=== PATIENT | female | born 1985 | race Caucasian/White ===

== ENCOUNTER → 2017-01-03 | Outpatient (CLI) | payer BC | END | disposition home or self-care (01) | LOC: C.PAPS 09:56 | PROVIDERS: ATTEND Obstetrics & Gynecology | DX: Z01.419 Encounter for gynecological examination (general) (routine) without abnormal findings (principal) ==

== ENCOUNTER → 2017-06-21 | Outpatient (CLI) | payer BC ==
--- NOTE | 2017-06-21 10:45 | DIAGNOSTIC IMAGING REPORT ---
RIGHT FOURTH FINGER 3 VIEWS CLINICAL HISTORY: Bone neoplasm. FINDINGS: 3 views of the right fourth finger are obtained. No prior studies are available for comparison at the time of dictation. The skeletal structures are well mineralized. There is a benign-appearing lucent expansile lesion identified within the proximal shaft of the fourth proximal phalanx. This demonstrates a narrow zone of transition and is most typical in appearance for an enchondroma or less likely an aneurysmal bone cyst. A nondistracted pathologic fracture is identified, best seen on the oblique view. The fourth metacarpophalangeal and interphalangeal joints are well-maintained. The overlying soft tissues are within normal limits. IMPRESSION: 1. There is a benign-appearing lucent lesion in the proximal shaft of the fourth proximal phalanx most typical appearance for an enchondroma or less likely an aneurysmal bone cyst. Orthopedic follow-up is advised. 2. There is evidence of nondisplaced pathologic fracture through this lesion. Electronically signed by: Keaton Noel M.D. 06/21/2017 10:44 AM Dictated Date/Time: 06/21/2017 10:40 AM
== END | disposition home or self-care (01) ==
LOC: C.RAD1850 10:08
PROVIDERS: ATTEND Nurse Practitioner Adult Health
DX: D16.11 Benign neoplasm of short bones of right upper limb (principal)

== ENCOUNTER → 2018-07-09 | Outpatient (CLI) | payer OTHER | END | disposition home or self-care (01) | LOC: C.LAB1850 09:44 | PROVIDERS: ATTEND Obstetrics & Gynecology | DX: Z34.02 Encounter for supervision of normal first pregnancy, second trimester (principal); Z3A.00 Weeks of gestation of pregnancy not specified ==

== ENCOUNTER 2022-10-15 21:38 | Observation (INO) ==
[2022-10-15] MEDS ORDERED: ONDANSETRON INJ 2 MG/ML 2 ML VIAL IV STA (22:00)
[2022-10-15] MEDS ORDERED: SODIUM CHLORIDE 0.9% 1000ML 1,000 ML IV ONE (22:00)
--- NOTE | 2022-10-15 22:06 | Emergency Department Note ---
Impression & Plan Nausea, vomiting and diarrhea, Acute dehydration, 36 weeks gestation of ED Provider Note Name: JESSICA SOL Age: 37 Sex: F Arrives Via: Walk-In Informant: Patient, ED Provider: Balaji Hines MD Chief Complaint: Vomiting Impression: As per impressions above Medical Decision Making: Healthy 37-year-old female at 36 weeks with second arrives for evaluation nausea vomiting diarrhea with likely culprit being at officiate last night. On examination she is dehydrated but otherwise looks well. She has a soft nontender abdomen with gravid uterus. She is not septic appearing and otherwise appears well. She does note some periodic contractions but they are intermittent and consistent with Antonio Rodríguez she has not had any vaginal discharge or bleeding. She was sent to ER by OB team for evaluation hydration. Following this I discussed case with on-call OB who asked that she be sent for NST upstairs. She left with IV in place to give further fluids which I think is reasonable. She was sent with Zofran ODT as needed. Differentials:Gastroenteritis, food borne illness, infections, appendicitis, diverticulitis, inflammatory bowel disease, obstruction, biliary pathology, volvulus, as well as other pathologies. Vital Signs: reviewed and remarkable for mild tachycardia on arrival Interventions: Zofran 4 mg IV, 1 L IV normal saline bolus x2 Labs:Reviewed and remarkable for no significant abnormalities Patient without urine output while here but is setting up to OB given the periodic contractions will defer to them for obtaining this if needed Plan: Disposition: Discharged from ER up to L&D Condition: Good History of Present Illness:87-year-old female arrives for evaluation of dehydration. Patient with 12 hours of nausea vomiting and diarrhea. Initially started with vomiting this morning and progressed to diarrhea throughout the afternoon. She notes she is feeling bit lightheaded worse with standing. Associated with dry mouth and decreased urination. Patient is currently 36 weeks with her second . No previous issues with the other than some swelling in her ankles. She notes the swelling in her ankles has gotten better today after she been quite dehydrated. Unable to keep down any food or drink by mouth as she vomits it back up. No fevers, chills, chest pain, shortness of breath, syncope, headache, neck pain, abdominal pain, back pain, urinary burning/frequency, blood in stool, calf pain or other concerning signs or symptoms. No medications prior to arrival. Eating makes worse rest makes better. No known sick contacts. She did have fish last night which she is worried may have been the culprit in this incident. ROS: See above HPI for pertinent positives & negatives. A total of 10 systems reviewed and were otherwise negative. Past Medical History:Anxiety Past Surgical History:See Below Family History:See Below Social History:See Below Home Medications:See Below Allergies:Crys Vitals:Blood Pressure: 116/73, Pulse 120, RR 16, T 36.1C, O2 97% on RA Physical Exam: GENERAL: Patient is tired/dehydrated appearing and in mild distress. EYES: No scleral icterus, unremarkable pupils. ENT: Mucous membranes moist, no nasal congestion. NECK: No masses appreciated, nomeningismus, trachea is midline. RESPIRATORY: No dyspnea. Clear to auscultation and equal bilaterally. No wheeze, no rhonchi. CARDIOVASCULAR: Regular rate and rhythm.No murmurs, rubs, gallops appreciated. GASTROINTESTINAL: Gravid uterus. Abdomen soft, non-tender, no peritonitis.Bowel sounds positive. BACK: No midline tenderness, no CVA tenderness EXTREMITIES: Normal motion all extremities, no cyanosis, no edema. NEUROLOGIC: Alert and oriented, no acute motor or sensory deficits, no focal weakness, cranial nerves grossly intact. SKIN: No rash, no jaundice, no diaphoresis. PSYCH: Appropriate GCS: 15 ED Course: Times/Reassessments: Patient notes she feels much better heart rate has improved she is actually asking if discharged but after discussion with OB will send to L&D for NST she is on board with that plan. Balaji Hines MD Past Med/Surg History Medical History (Updated 10/16/22 @ 00:09 by Balaji Hines MD) 41 weeks gestation of Anxiety as acute reaction to exceptional stress Asthma Chest pain History of chicken pox Inguinal hernia Oral contraceptive prescribed PROM (premature rupture of membranes) PTSD (post-traumatic stress disorder) Streptococcal sore throat Vaginal delivery Surgical History History of bone graft 4th finger right hand S/P hernia repair [place] teeth extracted Family History Father Alcohol abuse Hypertension Melanoma Dyslipidemia Mother Hypertension Dyslipidemia Grandfather Prostate cancer Denies family history of Ovarian cancer Myocardial infarction Breast cancer Colorectal cancer Social History (Updated 03/27/22 @ 10:56 by Ashly Daniel) Smoking Status: Never smoker Second Hand Exposure: No; Hx Alcohol Use: No Hx Substance Use: No Preferred Language: B[place] Communication Ability: Effective Visual Impairment: No Limitations Hearing Ability: Normal Distribution Lead Required: No Beliefs That Will Affect Care: None marital status: marital status details: Quinton Sol (40) [phone] Current Living Situation: Spouse and Family Current Living Situation Comment: lives with spouse, son, cats-spouse changing litter current occupational status: employed 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 Feels Safe at Home: Yes Physical Activity Frequency: 3-4 Times per Week Seatbelt Use: always Assistive Devices: None Allergies Allergies Allergy/AdvReac Type Severity Reaction Status Date / Time cat dander Allergy Severe CAN Verified 10/16/22 07:49 TRIGGER ASTHMA ATTACK dog dander Allergy Severe CAN Verified 10/16/22 07:49 TRIGGER ASTHMA ATTACK crys Allergy Intermediate Hives Verified 10/16/22 07:49 CUT GRASS Allergy Severe CAN Uncoded 10/16/22 07:49 TRIGGER ASTHMA ATTACK Home Meds Home Medications Medication Instructions Recorded Confirmed cetirizine 10 mg tablet (Zyrtec) 10 mg PO DAILY 12/31/18 10/16/22 fluticasone propionate 50 1 spray intranasal DAILY 02/07/20 10/16/22 mcg/actuation nasal spray,suspension (Flonase Allergy Relief) prenat.vits,jaymie,[id number] 1 tab PO DAILY 03/27/22 10/16/22 Previous Rx's Medication Instructions Recorded albuterol sulfate 90 mcg/actuation 1 - 2 puffs inhalation Q4H PRN 02/11/20 aerosol inhaler shortness of breath or wheezing #8 grams montelukast 10 mg tablet 10 mg PO DAILY #90 tabs 11/06/21 (Singulair) ferrous sulfate 325 mg (65 mg 325 mg PO DAILY #30 tabs 09/04/22 iron) tablet Results & Data (ED) Vital Signs Vital Signs - 24 hr 10/15/22 21:40 10/15/22 21:38 10/15/22 23:00 Temperature 36.1 C L Temperature Source Temporal Artery Scan Pulse Rate 120 H Pulse Rate [Finger] 101 H 109 H Pulse Rhythm [Finger] Regular Pulse Strength [Finger] Normal Respiratory Rate 16 22 20 Respiratory Effort / Characteristics Non-Labored Spontaneous Non-Labored Non-Labored Spontaneous Respiratory Depth Normal Normal Normal Respiratory Pattern Regular Blood Pressure 116/73 Blood Pressure [Right Arm] 111/67 111/67 Blood Pressure Mean 87 Blood Pressure Mean [Right Arm] 81 81 Pulse Oximetry 97 99 98 Oxygen Delivery Method Room Air Room Air Room Air Sepsis Recent Fever Within 48 Hours No Sepsis New/Unexplained Change in Mental Status N/A Sepsis Action Taken by Nursing No Action Required 10/15/22 23:30 10/16/22 00:15 Temperature Temperature Source Pulse Rate Pulse Rate [Finger] 100 H 109 H Pulse Rhythm [Finger] Pulse Strength [Finger] Respiratory Rate 18 18 Respiratory Effort / Characteristics Non-Labored Spontaneous Non-Labored Spontaneous Respiratory Depth Normal Normal Respiratory Pattern Blood Pressure Blood Pressure [Right Arm] 105/69 118/61 Blood Pressure Mean Blood Pressure Mean [Right Arm] 81 80 Pulse Oximetry 98 97 Oxygen Delivery Method Room Air Room Air Sepsis Recent Fever Within 48 Hours Sepsis New/Unexplained Change in Mental Status Sepsis Action Taken by Nursing Laboratory Data Result diagrams: 10/15/22 22:48 10/15/22 22:48 Lab Results 10/15/22 10/15/22 Range/Units 22:48 22:48 WBC 7.07 (4.8-10.8) K/ul RBC 4.22 (3.93-5.22) M/uL Hgb 12.2 (12.0-16.0) g/dl Hct 37.1 (34.1-44.9) % MCV 87.9 (80.0-100.0) fL MCH 28.9 (25.0-34.0) pg MCHC 32.9 (32.0-36.0) g/dL RDW Std Deviation 49.7 H (36.4-46.3) fL RDW Coeff of Robbie 15.7 H (11.5-14.5) % Plt Count 205 (130-400) K/uL MPV 9.9 (9.4-12.3) fL Immature Gran % (Auto) 0.7 % Neut % (Auto) 89.7 % Lymph % (Auto) 5.7 % [place]bour % (Auto) 3.5 % Eos % (Auto) 0.1 % Baso % (Auto) 0.3 % Neut # (Auto) 6.34 (1.4-6.5) K/uL Lymph # (Auto) 0.40 L (1.2-3.4) K/uL [place]bour # (Auto) 0.25 (0.24-0.82) K/uL Eos # (Auto) 0.01 (0-0.50) K/uL Baso # (Auto) 0.02 (0-0.2) K/uL Immature Gran # (Auto) 0.05 H (0.00-0.02) K/uL Sodium 134 L (136-145) mmol/L Potassium 3.8 (3.5-5.1) mmol/L Chloride 103 (98-107) mmol/L Carbon Dioxide 21 (21-32) mmol/L Anion Gap 10 (3-11) BUN 8 (6-23) mg/dl Creatinine 0.51 L (0.6-1.2) mg/dl Est Cr Clr Drug Dosing 155.0 ml/min Est GFR ( Amer) 144.4 ml/min Est GFR (Non-Af Amer) 124.6 ml/min BUN/Creatinine Ratio 15.7 (10-20) Glucose 102 H (70-99(Fasting)) mg/dl Calcium 8.1 L (8.5-10.1) mg/dl Total Bilirubin 0.5 (0.2-1.0) mg/dl Direct Bilirubin 0.1 (0-0.2) mg/dl AST 15 (13-39) U/L ALT 11 (7-52) U/L Alkaline Phosphatase 123 H (34-104) U/L Total Protein 6.7 (6.0-8.3) gm/dl Albumin 3.4 (3.4-5.0) gm/dl Administered Medications Discontinued Medications Sodium Chloride (Nss 1000ml) 1,000 mls @ 999 mls/hr IV .Q1H1M ONE Stop: 10/15/22 23:00 Last Infusion: 10/16/22 00:06 Dose: 0 mls/hr Documented By: Admin: 10/15/22 22:55 Dose: 999 mls/hr Documented By: JAN Sodium Chloride (Nss 1000ml) 1,000 mls @ 999 mls/hr IV .Q1H1M ONE Stop: 10/16/22 01:08 Last Admin: 10/16/22 00:15 Dose: 999 mls/hr Documented By: JANINE Ondansetron HCl (Ondansetron Inj 2 Mg/Ml 2 Ml Vial) 4 mg IV NOW STA Stop: 10/15/22 22:01 Last Admin: 10/15/22 22:56 Dose: 4 mg Documented By: JAN Ondansetron HCl (Ondansetron Home Pack 4mg Od Tab) 1 each PO NOW ONE Stop: 10/16/22 00:09 Last Admin: 10/16/22 00:15 Dose: 1 each Documented By: JANINE Discharge Plan Visit Data Chief Complaint: Vomiting Stated Complaint: VOMITING, 36 WKS PREG ED Provider: Balaji Hines Discharge Problem: Nausea, vomiting and diarrhea, Acute dehydration, 36 weeks gestation of Patient Disposition: Admitted As Inpatient Condition: Good Discharge Instructions Interventions: ED Discharge Assessment Last Done: 10/16/22 00:22
[2022-10-15 22:57] LABS: Basophils # (auto) 0.02 K/uL (0-0.2); Basophils % (auto) 0.3 %; Eosinophils # (auto) 0.01 K/uL (0-0.50); Eosinophils % (auto) 0.1 %; Hematocrit (blood only) 37.1 % (34.1-44.9); Hemoglobin 12.2 g/dl (12.0-16.0); Immature Granulocytes # (auto) 0.05 K/uL (0.00-0.02); Immature Granulocytes % (auto) 0.7 %; Lymphocytes % (auto) 5.7 %; Mean Corpuscular Hemoglobin 28.9 pg (25.0-34.0); Mean Corpuscular Hgb Conc 32.9 g/dL (32.0-36.0); Mean Corpuscular Volume 87.9 fL (80.0-100.0); Mean Platelet Volume 9.9 fL (9.4-12.3); Monocytes # (auto) 0.25 K/uL (0.24-0.82); Monocytes % (auto) 3.5 %; Neutrophils # (auto) 6.34 K/uL (1.4-6.5); Neutrophils % (auto) 89.7 %; Platelet Count 205 K/uL (130-400); RDW Coefficient of Variation 15.7 % (11.5-14.5); RDW Standard Deviation 49.7 fL (36.4-46.3); Red Blood Count 4.22 M/uL (3.93-5.22); White Blood Count 7.07 K/ul (4.8-10.8)
[2022-10-15 23:29] LABS: Albumin Level 3.4 gm/dl (3.4-5.0); BUN Creatinine Ratio 15.7 (10-20); Bilirubin Direct 0.1 mg/dl (0-0.2); Bilirubin,Total 0.5 mg/dl (0.2-1.0); Calcium 8.1 mg/dl (8.5-10.1); Est GFR (African American) 144.4 ml/min; Est GFR (Non-African American) 124.6 ml/min; Potassium 3.8 mmol/L (3.5-5.1); Total Protein 6.7 gm/dl (6.0-8.3)
[2022-10-16] MEDS ORDERED: ONDANSETRON HOME PACK 4MG OD TAB PO ONE (00:08)
[2022-10-16] MEDS ORDERED: SODIUM CHLORIDE 0.9% 1000ML 1,000 ML IV ONE (00:08)
--- NOTE | 2022-12-09 01:39 | Discharge Summary (DS) ---
PRINCIPAL DIAGNOSES: Intrauterine at 36 weeks, prior section, nausea, vomiting, diarrhea and dehydration. HOSPITAL COURSE: The patient is a 37-year-old multiparous female who presents to the emergency room following which she feels maybe food poisoningshe and her had gone to a restaurant for dinner and had fish. Approximately 12 hours later, she was experiencing nausea, vomiting and then diarrhea, which was ongoing for the last 12 hours. She had no fever or chills, but because of concerns for dehydration, she came to the emergency room and received IV fluids as well as antiemetics. She was then feeling better at that time and was sent to labor and delivery for a nonstress test to assure that she was not brice excessive. . The nonstress test was reactive, and she was only having sporadic contractions. She was discharged to home to follow a modified clear liquid diet until her nausea had resolved. She is to call for any increase in contractions, vaginal bleeding, leaking fluid vaginally, fever, chills, temperature of 101 degrees or higher, increasing nausea, vomiting or diarrhea. She is to follow up for her next visit in the office as scheduled. [facility] ID[facility] [id number] [facility]
== END 2022-10-16 01:20 | disposition home or self-care (01) ==
LOC: 4S1 21:38 → ED 21:38 → 4S1 10-16 00:22

== ENCOUNTER 2022-11-06 05:28 | Inpatient (IN) ==
--- NOTE | 2022-10-30 14:56 | Anesthesiology Consultation ---
Date of Service October 30, 2022 Assessment & Plan (1) Encounter for pre-operative examination: Chart Review Chart Review: entry level account executive initiated - Pt with history of prior 4th degree tear at delivery with forceps. Scheduled for elective primary -COVID screening: Per PAT nursing assessment on 10/30/22. No known COVID-19 positive contacts or current COVID-19 related symptoms. Travel screen negative. Patient vaccinated for Covid. At surgeon discretion if preop Covid testing being done. CSE 12/31/18= Done at L3-4 with one attempt History Surgery Operation Date: 11/06/22 07:30 Proposed Procedures p SECTION (DELIVERY OF BABY THROUGH ABDOMINAL INCISION) - Osiris Kruger MD Height/Weight Height: 5 ft 1 in Weight: 88.904 kg Allergies Allergy/AdvReac Type Severity Reaction Status Date / Time cat dander Allergy Severe CAN Verified 10/30/22 14:29 TRIGGER ASTHMA ATTACK dog dander Allergy Severe CAN Verified 10/30/22 14:29 TRIGGER ASTHMA ATTACK hoang Allergy Intermediate Hives Verified 10/30/22 14:29 CUT GRASS Allergy Severe CAN Uncoded 10/30/22 14:29 TRIGGER ASTHMA ATTACK Medications Home Medications Medication Instructions Recorded Confirmed Last Taken cetirizine 10 mg tablet (Zyrtec) 10 mg PO QAM 12/31/18 10/30/22 10/15/22 fluticasone propionate 50 1 spray intranasal QAM 02/07/20 10/30/22 10/15/22 mcg/actuation nasal spray,suspension (Flonase Allergy Relief) albuterol sulfate 90 mcg/actuation 1 - 2 puffs inhalation Q4H PRN 02/11/20 10/30/22 Unknown aerosol inhaler shortness of breath or wheezing #8 grams prenat.vits,jaymie,zfz-tenh-aimri 1 tab PO DAILY 03/27/22 10/30/22 10/15/22 ferrous sulfate 325 mg (65 mg 325 mg PO 3XWK 10/30/22 10/30/22 Unknown iron) tablet montelukast 10 mg tablet 10 mg PO QAM 10/30/22 10/30/22 Unknown (Singulair) Past Medical History Medical History Asthma USES INHALER IN COLD MONTHS History of chicken pox PTSD (post-traumatic stress disorder) post delivery with emotional trauma due to baby being delivered with forceps in December of 2018 Past Family History Family History Father Alcohol abuse Dyslipidemia Melanoma Hypertension Mother Dyslipidemia Hypertension Grandfather Prostate cancer Other No family history of adverse response to anesthesia Denies family history of Ovarian cancer Myocardial infarction Breast cancer Colorectal cancer Past Surgical History Surgical History H/O inguinal hernia repair History of bone graft 4th finger right hand History of colonoscopy [place] teeth extracted Social History Smoking Status: Never smoker Hx Alcohol Use: No Hx Substance Use: No substance use type: does not use Lab Results Anesthesia Preop Results Results Anesthesia Widget: WBC 7.07 K/ul (4.8-10.8) 10/15/22 Hgb 12.2 g/dl (12.0-16.0) 10/15/22 Hct 37.1 % (34.1-44.9) 10/15/22 Plt 205 K/uL (130-400) 10/15/22 Na 134 mmol/L (136-145) L 10/15/22 K 3.8 mmol/L (3.5-5.1) 10/15/22 Cl 103 mmol/L (98-107) 10/15/22 CO2 21 mmol/L (21-32) 10/15/22 BUN 8 mg/dl (6-23) 10/15/22 Creat 0.51 mg/dl (0.6-1.2) L 10/15/22 Glucose Level 102 mg/dl (70-99(Fasting)) H 10/15/22
[2022-11-06 05:55] LABS: Basophils # (auto) 0.08 K/uL (0-0.2); Eosinophils % (auto) 4.9 %; Hematocrit (blood only) 35.2 % (34.1-44.9); Hemoglobin 11.5 g/dl (12.0-16.0); Immature Granulocytes # (auto) 0.05 K/uL (0.00-0.02); Immature Granulocytes % (auto) 0.6 %; Lymphocytes # (auto) 2.16 K/uL (1.2-3.4); Lymphocytes % (auto) 26.2 %; Mean Corpuscular Hemoglobin 28.2 pg (25.0-34.0); Mean Corpuscular Hgb Conc 32.7 g/dL (32.0-36.0); Mean Corpuscular Volume 86.3 fL (80.0-100.0); Mean Platelet Volume 10.2 fL (9.4-12.3); Monocytes # (auto) 0.53 K/uL (0.24-0.82); Monocytes % (auto) 6.4 %; Neutrophils # (auto) 5.01 K/uL (1.4-6.5); Neutrophils % (auto) 60.9 %; Platelet Count 200 K/uL (130-400); RDW Coefficient of Variation 15.9 % (11.5-14.5); RDW Standard Deviation 49.5 fL (36.4-46.3); Red Blood Count 4.08 M/uL (3.93-5.22); White Blood Count 8.23 K/ul (4.8-10.8)
[2022-11-06] MEDS ORDERED: LACTATED RINGER'S 1,000 ML IV SCH ×2 (06:00→09:15)
[2022-11-06] MEDS ORDERED: CITRIC ACID/SODIUM CITRATE 15 ML UDC PO SCH (06:00)
[2022-11-06] MEDS ORDERED: ceFAZolin 2,000 MG in SYRINGE 0 ML IV SCH (06:00)
[2022-11-06] MEDS ORDERED: ePHEDrine sulfate 50 MG/ML AMP IV PRN (07:14)
[2022-11-06] MEDS ORDERED: MoRPHine SULFATE PF 1 MG/ML 10 ML AMP/VIAL INT SPINAL ONE (07:14)
[2022-11-06] MEDS ORDERED: ONDANSETRON INJ 2 MG/ML 2 ML VIAL IV PRN (07:14)
[2022-11-06] MEDS ORDERED: NALOXONE HCL 0.4 MG/1 ML VIAL/CARP IV PRN (07:14)
[2022-11-06] MEDS ORDERED: PROMETHAZINE HCL 6.25 MG in SODIUM CHLORIDE 0.9% 50 ML IV PRN (07:14)
[2022-11-06] MEDS ORDERED: NALOXONE HCL 1 MG in SODIUM CHLORIDE 0.9% 1000ML 1,000 ML IV PRN (07:14)
[2022-11-06] MEDS ORDERED: NALOXONE HCL 0.08 MG in SYRINGE 1.8 ML IV PRN (07:14)
[2022-11-06] MEDS ORDERED: NALBUPHINE HCL INJ 10 MG/ML AMP IV PRN (07:14)
[2022-11-06] MEDS ORDERED: LACTATED RINGER'S 500 ML IV PRN (07:14)
[2022-11-06] MEDS ORDERED: diphenhydrAMINE 50 MG/ML VIAL IV PRN (07:14)
[2022-11-06] MEDS ORDERED: NO NARCOTICS OR SEDATIVES SCH (07:15)
[2022-11-06] MEDS ORDERED: DC INTRASPINAL MORPHINE SCH (07:15)
[2022-11-06] MEDS ORDERED: SODIUM CHLORIDE 0.9% 1000ML 1,000 ML IV SCH (07:15)
[2022-11-06] MEDS ORDERED: MoRPHine SULFATE PF 1 MG/ML 10 ML AMP/VIAL ONE (07:27)
--- NOTE | 2022-11-06 07:32 | History & Physical Bridge Note ---
Date of Service November 06, 2022 History & Physical Bridge Note I have examined the patient, reviewed the History & Physical and in the interval since the performance of the History & Physical I have noted the following changes of clinical significance: no changes noted
[2022-11-06] MEDS ORDERED: KETOROLAC 30 MG/ML VIAL IV PRN (08:17)
[2022-11-06] MEDS ORDERED: MEPERIDINE HCL 50 MG/ML CARP IV PRN (08:17)
[2022-11-06] MEDS ORDERED: SENNA 8.6 MG TAB PO PRN (08:17)
[2022-11-06] MEDS ORDERED: BENZOCAINE 20% AER SPR 82.5 GM CAN EXT PRN (08:17)
[2022-11-06] MEDS ORDERED: HYDROCORTISONE ACETATE 25 MG SUPP PR PRN (08:17)
[2022-11-06] MEDS ORDERED: MAGNESIUM HYDROXIDE SUSP 30 ML UDC PO PRN (08:17)
[2022-11-06] MEDS ORDERED: DIPHTHERIA/TETANUS/PERTUSSIS 0.5 ML SYR/VIAL IM ONE (08:30)
[2022-11-06] MEDS ORDERED: OXYTOCIN 20 UNITS in LACTATED RINGER'S 1,000 ML IV SCH (08:30)
[2022-11-06] MEDS ORDERED: ONDANSETRON INJ 2 MG/ML 2 ML VIAL ONE (08:34)
[2022-11-06] MEDS ORDERED: PHENYLEPHRINE 100MCG/ML 5ML SYR ONE (08:34)
[2022-11-06] MEDS ORDERED: KETOROLAC 30 MG/ML VIAL ONE (08:34)
[2022-11-06] MEDS ORDERED: OXYTOCIN 10 UNITS/ML 10ML VIAL ONE (08:34)
--- NOTE | 2022-11-06 11:39 | Anesthesiology Progress Note ---
Date of Service November 06, 2022 Anesthesia Post Procedure Vital Signs Vital Signs: Temp Pulse Resp BP Pulse Ox 11/06/22 09:35 20 11/06/22 09:35 20 11/06/22 09:25 20 11/06/22 09:15 20 11/06/22 09:05 20 11/06/22 08:55 20 11/06/22 08:45 20 11/06/22 08:35 36.4 C L 20 11/06/22 10:42 70 98 11/06/22 10:40 75 94/60 L 11/06/22 10:37 74 97 11/06/22 10:32 71 97 11/06/22 10:27 75 97 11/06/22 10:22 66 97 11/06/22 10:17 74 97 11/06/22 10:13 75 94 11/06/22 10:12 67 96 11/06/22 10:10 75 95/57 L 11/06/22 10:07 71 96 11/06/22 10:02 68 97 11/06/22 09:57 73 97 11/06/22 09:52 69 96 11/06/22 09:47 72 98 11/06/22 09:42 67 98 11/06/22 09:38 78 107/63 11/06/22 09:37 74 97 11/06/22 09:32 77 97 11/06/22 09:28 70 107/62 11/06/22 09:27 75 96 11/06/22 09:22 78 97 11/06/22 09:17 76 98 11/06/22 09:18 70 103/63 11/06/22 09:12 70 98 11/06/22 09:08 71 98/55 L 11/06/22 09:07 74 98 11/06/22 09:02 76 98 11/06/22 08:58 76 96/61 L 11/06/22 08:57 67 99 11/06/22 08:52 69 100 11/06/22 08:49 75 96/68 L 11/06/22 08:47 79 100 11/06/22 08:42 81 100 11/06/22 08:39 80 115/65 11/06/22 08:37 82 99 11/06/22 05:53 77 115/65 11/06/22 05:55 37.1 C 18 Transfer of Care Handoff Completed per policy Notes Mental Status: alert / awake / arousable Nausea / Vomiting: adequately controlled Pain: adequately controlled Airway Patency, RR, SpO2: stable & adequate BP & HR: stable & adequate Hydration State: stable & adequate Neuraxial Anesthesia: was administered and sensory block is resolving Anesthetic Complications: no major complications apparent and Pt Satisfied with anesthetic care
[2022-11-06] MEDS: SIMETHICONE 80 MG CHEW PO SCH ×3 (13:17→20:04)
[2022-11-06] MEDS: DOCUSATE SODIUM 100 MG CAP PO SCH (20:04)
[2022-11-06] MEDS ORDERED: KETOROLAC 30 MG/ML VIAL IV ONE (23:53)
[2022-11-07] MEDS ORDERED: PROMETHAZINE HCL 25 MG in SODIUM CHLORIDE 0.9% 50 ML IV PRN (01:15)
[2022-11-07] MEDS ORDERED: diphenhydrAMINE Capsule 25 MG CAP PO PRN (01:15)
[2022-11-07] MEDS ORDERED: MEPERIDINE HCL 50 MG/ML CARP IV PRN (01:15)
[2022-11-07] MEDS ORDERED: oxyCODONE/ACETAMINOPHEN 5mg/325mg TAB PO PRN (01:15)
[2022-11-07] MEDS ORDERED: diphenhydrAMINE 50 MG/ML VIAL IV PRN (01:15)
[2022-11-07] MEDS ORDERED: ONDANSETRON INJ 2 MG/ML 2 ML VIAL IV PRN (01:15)
[2022-11-07] MEDS ORDERED: KETOROLAC 30 MG/ML VIAL IV PRN (01:15)
--- NOTE | 2022-11-07 04:27 | Obstetrical Progress Note ---
Date of Service November 07, 2022 Assessment & Plan (1) care following delivery: Plan - Overall, feeling well and lightly eating well today - breast feeding going well without concern - Passing gas appropriately, follow urination today, Wheatley removed in AM - Ambulating well - Pain controlled - Hgb 11.5 on 11/06 - Routine PP care progressing well - Anticipate discharge at 48-72 hours post-op - Recommending f/u outpatient in 6 weeks Admission and Anticipated Discharge Date Admission Date: November 06, 2022 Supervising Physician Co-Signing Physician Notes Resident Physician Supervision Note: I interviewed and examined the patient. Discussed with Dr. Gentile and agree with findings and plan as documented in the note. Any exceptions or clarifications are listed here: [ ] Documented By: Osiris Kruger MD, FACOG Subjective Patient is a 37 y/o female who is POD #1 following delivery at 39w2d. She reports feeling well overall this morning. - Ambulation - well throughout room - Voiding/Wheatley - has sensation to void, but has not yet voided since Wheatley removal - Gas/Stool - passing gas, no bowel movement - Diet - regular, no nausea or emesis - Lochia - diminishing, light amount - Infant Feeding Type - breast feeding - Pain Level - 2/10 Review of Systems - Denies fever, chills, sweats - Denies shortness of breath, difficulty breathing, chest pain, palpitations, chest pressure. - Denies breast pain. - Denies dysuria. - Denies headache or changes in vision. Physical Exam Physical Exam: General: Alert, oriented. No acute distress. Cardiac: RRR, normal S1/S2, no murmurs/rubs/gallops. Respiratory: Non-labored, CTAB, no wheezes/rales/rhonchi. Symmetric chest rise. Abdomen: Soft, nontender, nondistended. Bowel sounds present. Uterus: Uterine fundus firm, palpable 2 cm below umbilicus. Lower Extremities: No lower extremity edema or swelling. No deep calf pain. Yaima's negative bilaterally. Results & Data ([facility]) Vital Signs (Past 12 Hours) Vital Signs Temp Pulse Pulse Resp BP Pulse Ox O2 Del Method 11/07/22 03:45 36.4 C L 80 18 109/72 97 Room Air 12/13/22 01:25 18 98 11/07/22 00:05 18 98 11/07/22 00:05 36.7 C 88 18 110/69 98 Room Air 11/06/22 23:10 16 95 11/06/22 22:19 18 97 11/06/22 21:26 18 97 11/06/22 20:49 18 97 11/06/22 19:50 18 97 11/06/22 19:50 Room Air 11/06/22 19:50 36.9 C 84 18 113/74 97 Room Air 11/06/22 18:34 20 98 11/06/22 17:08 20 97 Resident Activity Tracking Resident Involvement: Resident Care Provided Care Provided: OB Delivery
[2022-11-07 07:16] LABS: Basophils # (auto) 0.07 K/uL (0-0.2); Basophils % (auto) 0.8 %; Eosinophils % (auto) 4.3 %; Hematocrit (blood only) 31.3 % (34.1-44.9); Hemoglobin 10.3 g/dl (12.0-16.0); Immature Granulocytes # (auto) 0.06 K/uL (0.00-0.02); Immature Granulocytes % (auto) 0.6 %; Lymphocytes # (auto) 1.65 K/uL (1.2-3.4); Lymphocytes % (auto) 17.8 %; Mean Corpuscular Hemoglobin 28.9 pg (25.0-34.0); Mean Corpuscular Hgb Conc 32.9 g/dL (32.0-36.0); Mean Corpuscular Volume 87.9 fL (80.0-100.0); Mean Platelet Volume 10.3 fL (9.4-12.3); Monocytes # (auto) 0.47 K/uL (0.24-0.82); Monocytes % (auto) 5.1 %; Neutrophils # (auto) 6.63 K/uL (1.4-6.5); Neutrophils % (auto) 71.4 %; Platelet Count 173 K/uL (130-400); RDW Coefficient of Variation 16.1 % (11.5-14.5); RDW Standard Deviation 51.4 fL (36.4-46.3); Red Blood Count 3.56 M/uL (3.93-5.22); White Blood Count 9.28 K/ul (4.8-10.8)
[2022-11-07] MEDS: FERROUS SULFATE 325 MG TAB PO SCH (08:38)
[2022-11-07] MEDS: IBUPROFEN 600 MG TAB PO PRN ×4 (08:38→20:00)
[2022-11-07] MEDS: PRENATAL VITAMIN 1 TAB PO SCH (08:38)
[2022-11-07] MEDS: DOCUSATE SODIUM 100 MG CAP PO SCH ×2 (08:38→20:00)
[2022-11-07] MEDS: SIMETHICONE 80 MG CHEW PO SCH ×4 (08:38→20:00)
[2022-11-07] MEDS: MONTELUKAST SODIUM 10 MG TABLET PO SCH (10:06)
[2022-11-07] MEDS: CETIRIZINE HCL 10 MG TABLET PO SCH (10:06)
[2022-11-07] MEDS ORDERED: bisacodyL 5 MG TABEC PO SCH (20:00)
[2022-11-08] MEDS: IBUPROFEN 600 MG TAB PO PRN ×3 (01:59→10:33)
--- NOTE | 2022-11-08 05:28 | Obstetrical Progress Note ---
Date of Service November 08, 2022 Assessment & Plan (1) care following delivery: Plan - Overall, feeling well and eating well today - Infant breast feeding going well without concern - Passing gas appropriately and urinating appropriately - Ambulating well - Pain controlled w/ Ibuprofen - Hgb 10.3 on 11/07 - Routine PP care progressing well - Anticipate discharge today at patients request - Recommending f/u outpatient in 6 weeks Admission and Anticipated Discharge Date Admission Date: November 06, 2022 Supervising Physician Co-Signing Physician Notes Resident Physician Supervision Note: I interviewed and examined the patient. Discussed with Dr. Moore and agree with findings and plan as documented in the note. Any exceptions or clarifications are listed here: POD#2, doing well. Declines Rx for pain medications, feeling like she would not want to take it anyway. Reviewed DC instructions. Documented By: Tabatha Celestin, DO Subjective Patient is a 37 y/o female who is POD #2 following delivery at 39w2d. She reports feeling well overall this morning and wishes to go home. - Ambulation - well throughout room - Voiding/Wheatley - independently voiding w/o dysuria - Gas/Stool - passing gas, no bowel movement, taking stool softener - Diet - regular, no nausea or emesis - Lochia - diminishing, moderate amount - Feeding Type - breast feeding w/o concerns - Pain Level - 2/10 controlled with Ibuprofen Review of Systems - Denies fever, chills, sweats - Denies shortness of breath, difficulty breathing, chest pain, palpitations, chest pressure. - Denies breast pain. - Denies dysuria. - Denies headache or changes in vision. Physical Exam Physical Exam: General: Alert, oriented. No acute distress. Cardiac: RRR, normal S1/S2, no murmurs/rubs/gallops. Respiratory: Non-labored, CTAB, no wheezes/rales/rhonchi. Symmetric chest rise. Abdomen: Soft, nontender, nondistended. Bowel sounds present. Uterus: Uterine fundus firm, palpable 2 cm below umbilicus. Incision clean and dry w/o erythema or purulence, Dermabond intact. Lower Extremities: Trace lower extremity edema. No deep calf pain. Yaima's negative bilaterally. Results & Data ([facility]) Vital Signs (Past 12 Hours) Vital Signs Temp Pulse Resp BP Pulse Ox O2 Del Method 11/07/22 23:00 36.9 C 80 16 110/82 99 Room Air 11/07/22 20:00 36.8 C 81 16 112/72 97 Room Air Resident Activity Tracking Resident Involvement: Resident Care Provided Care Provided: OB Delivery
[2022-11-08 07:56] LABS: Hemoglobin 9.9 g/dl (12.0-16.0)
[2022-11-08] MEDS: SIMETHICONE 80 MG CHEW PO SCH ×2 (08:07→12:23)
[2022-11-08] MEDS: DOCUSATE SODIUM 100 MG CAP PO SCH (08:08)
[2022-11-08] MEDS: MONTELUKAST SODIUM 10 MG TABLET PO SCH (08:08)
[2022-11-08] MEDS: CETIRIZINE HCL 10 MG TABLET PO SCH (08:08)
[2022-11-08] MEDS: FERROUS SULFATE 325 MG TAB PO SCH (08:08)
[2022-11-08] MEDS: PRENATAL VITAMIN 1 TAB PO SCH (08:08)
[2022-11-08] MEDS ORDERED: bisacodyL 10 MG SUPP PR PRN (08:18)
--- NOTE | 2022-11-10 08:14 | Discharge Summary ---
Date of Service November 10, 2022 Discharge Data Consultations 11/06/22 05:30 Consult Anesthesiology Stat Procedures Performed Operation Date: 11/06/22 07:30 Actual Procedures p Section in LD; Primary lower uterine transverse Section for the of a live girl at 0800.(Bilateral) - Osiris Kruger MD Hospital Course (1) care following delivery: Plan - Overall, feeling well and eating well today - Infant breast feeding going well without concern - Passing gas appropriately and urinating appropriately - Ambulating well - Pain controlled w/ Ibuprofen - Hgb 10.3 on 11/07 - Routine PP care progressing well - Anticipate discharge today at patients request - Recommending f/u outpatient in 6 weeks Supervising Physician Co-Signing Physician Notes Resident Physician Supervision Note: I interviewed and examined the patient. Discussed with Dr. Moore and agree with findings and plan as documented in the note. Any exceptions or clarifications are listed here: POD#2, doing well. Declines Rx for pain medications, feeling like she would not want to take it anyway. Reviewed DC instructions. Documented By: Tabatha Celestin DO Coding Level of Care Code None Diagnoses care following delivery Z39.2
--- NOTE | 2022-11-10 08:14 | Operative Report ---
PG Post Operative Report Pre & Post Diagnosis Operation Date: 11/06/22 07:30 Pre-Op Diagnosis: 1. Primary Section - Elective Post-Op Diagnosis: Same I identified the patient and participated in the time-out.: Yes Procedure Operation Date: 11/06/22 07:30 Actual Procedures Primary lower uterine transverse Section for the of a live girl at 0800 Surgeon Osiris Kruger MD Hospice Patient Care Secretary Magen Estimated Blood Loss 500 Findings Consistent with Post-Op Diagnosis Specimens Placenta, Cord blood Anesthesia Type Spinal Complications none Disposition Accompanied Patient To Recovery: Yes Disposition: L&D Description of Procedure The patient was placed operating table in the supine position with a leftward tilt. She was prepped and draped in standard sterile fashion. The anesthetic was tested and found to be adequate. A time-out was held, identifying correct patient, procedure, positioning and preoperative antibiotics. There were no concerns. A Pfannenstiel skin incision was made with a knife and taken down to the underlying layer of fascia. The fascia was incised in the midline with the knife and taken out laterally with scissors. The superior edge of the fascial incision was grasped, elevated and dissected off the underlying rectus both superiorly and inferiorly. The muscles were bluntly in the midline. The peritoneum was entered bluntly. The incision was then stretched. The bladder retractor was placed. The vesicouterine peritoneum was identified, entered with scissors and taken out laterally with scissors. The bladder flap was created digitally. A hysterotomy incision was created transversely in the lower uterine segment, final entry being accomplished in a blunt manner with the screw machine operator's fingers. Clear amniotic fluid was encountered. The screw machine operator's hand was used to elevate the head to the hysterotomy. The head was delivered using mild fundal pressure, and the shoulders and body followed without difficulty. The cord was clamped and cut and the infant was then handed off to the awaiting signal intelligence analyst. Cord blood was obtained. The placenta was Manually extracted. The uterus was exteriorized and cleared of all clot and debris with moistened laparotomy sponges. The hysterotomy incision was repaired in two layers, the first in a running locked layer, the second in an imbricating layer. The ovaries and tubes were seen bilaterally. The uterus was gently replaced in the abdomen, and the gutters were cleared of clot and debris. A final inspection of the hysterotomy revealed good hemostasis. The rectus muscles were allowed to reapproximate naturally. The fascia was then reapproximated with 1 Vicryl in a running nonlocked manner. The fascia was examined and found to be free of defect following closure. The subcutaneous tissue was copiously irrigated and reapproximated with 0-chromic, then the skin edges were closed with 4-0 monocryl in a subcuticular fashion. A dermabond dressing was applied. The smith was found to be draining clear yellow urine at completion of the procedure. I attest to the content of the Intraoperative Record and any orders documented therein. Any exceptions are noted below. I attest to the content of the Intraoperative Record and any orders documented therein. Any exceptions are noted below. OB Procedure Charges [id number]
== END 2022-11-08 14:00 | disposition home or self-care (01) | DRG 788 ==
LOC: 4S1 05:28 → EDSTATUS 07:30 → 4E2 11:33